=== PATIENT | female | born 1985 | race Caucasian/White ===

== ENCOUNTER 2016-05-25 05:25 | Day surgery (SDC) | payer OTHER ==
[2016-05-24 12:10] VITALS: BMI 35.1
[~2016-05-25] VITALS: Ht 157.5 cm; Wt 86.0 kg
[2016-05-25] VITALS (23 sets, daily range): BP systolic 96–127; BP diastolic 53–95; PULSE 68–110; RESP 12–20; Ht 157.5 cm; Wt 86.0 kg
[2016-05-25] MEDS ORDERED: VANCOMYCIN 1 GM (PMX) 250 ML IVPB ONE (05:30)
[2016-05-25] MEDS ORDERED: GLYCOPYRROLATE 1 MG INJ ONE (06:33)
[2016-05-25] MEDS ORDERED: NEOSTIGMINE 3 MG/3 ML SYRINGE ONE (06:33)
[2016-05-25] MEDS ORDERED: LIDOCAINE 2% (SDV) 5 ML INJ ONE (06:33)
[2016-05-25] MEDS ORDERED: MIDAZOLAM 1 MG/ML 2 ML INJ ONE (06:33)
[2016-05-25] MEDS ORDERED: PROPOFOL 20 ML ONE (06:33)
[2016-05-25] MEDS ORDERED: ROCURONIUM 50 MG INJ ONE (06:33)
[2016-05-25] MEDS ORDERED: FENTAnyl 50 MCG/ML VIAL ONE ×2 (06:33→06:59)
[2016-05-25] MEDS ORDERED: DEXAMETHASONE 4 MG/ML 1 ML INJ ONE (06:35)
[2016-05-25] MEDS ORDERED: ONDANSETRON 4 MG INJ ONE (06:36)
[2016-05-25] MEDS ORDERED: BUPIVACAINE 0.25% (MPF) 30 ML INJ ONE (06:58)
[2016-05-25] MEDS ORDERED: FENTAnyl 50 MCG/ML VIAL IV PRN ×2 (07:00)
[2016-05-25] MEDS ORDERED: EPHEDrine SULFATE 50 MG/5 ML SYG IV PRN (07:00)
[2016-05-25] MEDS ORDERED: LABETALOL HCL 20MG INJ IV PRN (07:00)
[2016-05-25] MEDS ORDERED: ATROPINE 1 MG/10 ML SYRINGE IV PRN (07:00)
[2016-05-25] MEDS ORDERED: morphine (1 MG/ML) 10ML SYRINGE IV PRN ×3 (07:00)
[2016-05-25] MEDS ORDERED: hydrALAzine 20 MG INJ IV PRN (07:00)
[2016-05-25] MEDS ORDERED: MIDAZOLAM 1 MG/ML 2 ML INJ IV PRN (07:00)
[2016-05-25] MEDS ORDERED: OXYCODONE/ACETAMINOPHEN (5/325) TAB PO PRN ×2 (07:00)
[2016-05-25] MEDS ORDERED: HYDROmorphONE (0.2 MG/ML) 10ML SYG IV PRN ×2 (07:00)
[2016-05-25] MEDS ORDERED: DIPHENHYDRAMINE 50 MG INJ IV PRN ×2 (07:00→07:30)
[2016-05-25] MEDS ORDERED: MEPERIDINE 25 MG INJ IV PRN (07:00)
[2016-05-25] MEDS ORDERED: ONDANSETRON 4 MG INJ IV PRN (07:00)
--- NOTE | 2016-05-25 07:25 | HPN ---
Date/Time of Note Date/Time of Note DATE: 05/25/16 TIME: 07:25 Interval H&P Admission Note Pt. seen H&P reviewed: No system changes ONUR WHALEY MD May 25, 2016 07:25
[2016-05-25] MEDS: D5W-0.45 NACL + KCL 20 MEQ 1,000 ML IV SCH (07:26)
[2016-05-25] MEDS ORDERED: DIPHENHYDRAMINE 25 MG CAP PO PRN (07:30)
[2016-05-25] MEDS ORDERED: NALOXONE (0.4 MG/ML) INJ IV PRN (07:30)
[2016-05-25] MEDS ORDERED: PROCHLORPERAZINE 10 MG INJ IV PRN (07:30)
[2016-05-25] MEDS ORDERED: CEPASTAT LOZENGE MT PRN (07:30)
[2016-05-25] MEDS ORDERED: ACETAMINOPHEN 325 MG TAB PO PRN (07:30)
[2016-05-25] MEDS ORDERED: HYDROmorphONE 1 MG/ML SYG IV PRN (07:30)
[2016-05-25] MEDS ORDERED: CYCLOBENZAPRINE 10 MG TAB PO PRN (07:30)
[2016-05-25] MEDS ORDERED: LABETALOL HCL 20MG INJ ONE (07:50)
[2016-05-25] MEDS ORDERED: CA CHLORIDE 10% 10 ML SYRINGE ONE (08:09)
[2016-05-25] MEDS ORDERED: THROMBIN 5000 UNIT VIAL ONE ×2 (08:10→08:29)
[2016-05-25] MEDS ORDERED: IOHEXOL 300MG/ML 30 ML BTL ONE (08:11)
[2016-05-25] MEDS ORDERED: BUPIVACAINE 0.25% (MPF) 10 ML 10 ML VIAL ONE (08:40)
[2016-05-25] MEDS ORDERED: POLYMYXIN/BACITRACIN 1L IRRIG IRR ONE (08:48)
[2016-05-25] MEDS ORDERED: HEMOSTATIC MATRIX/ THROMBIN 1 EA SYG ZFS ONE (08:54)
[2016-05-25] MEDS: HYDROmorphONE (0.2 MG/ML) 10ML SYG IV PRN ×4 (10:34→10:57)
--- NOTE | 2016-05-25 11:31 | OPR ---
DATE OF OPERATION: 05/25/2016 PREOPERATIVE DIAGNOSIS: Left L4-5 disk herniation with left lower extremity radiculopathy. POSTOPERATIVE DIAGNOSIS: Left L4-5 disk herniation with left lower extremity radiculopathy. OPERATION PERFORMED: 1. Left L4 laminectomy. 2. Left L5 laminectomy. 3. Left L4-5 facet osteotomy. 4. Removal of disk material within the disk space as well as disk fragment. 5. Evaluation of exiting L4 and traversing L5 nerve root with a [place] tool. 6. Use of intraoperative microscope for microdissection. 7. Use of intraoperative neuromonitoring for upper and lower extremities as well as spinal cord mon itoring during the entire surgical procedure for SSEP, MEP, and EMG during the entire procedure. 8. Use of intraoperative fluoroscopy for localization. 9. Use of intraoperative fluoroscopy for epidurogram. 10. Placement of epidural catheter with Isovue for epidurogram with lateral localizing film verifie d proper placement. 11. Epidural catheter injection of 4 mL of 0.25% Marcaine and 100 mcg of fentanyl removal of cathet er. 12. Cosmetic wound closure of 2 cm incision. 13. Subcutaneous injection of 0.25% Marcaine for postop analgesia. SURGEON: Lobito Lopez MD FIBERLINE SUPERVISOR: None. FINDINGS: At the start of the surgical procedure, it was noted that the patient had nerve root sign als and deficit on the left L5 down 50%, left S1 down 40% and returned back to normal symmetric to c ontralateral side at the conclusion of the procedure. BLOOD USAGE: None. IMPLANTS: NuShield barrier. ESTIMATED BLOOD LOSS: Minimal. DRAINS: None. SPECIMENS: L4-5 disk material. COMPLICATIONS: None. ANESTHESIA: Lalo Henao MD TYPE OF ANESTHESIA: General. BRIEF PREOPERATIVE HISTORY: The patient is a healthy 30-year-old female who presented with signific ant symptoms of left lower extremity radiating pain for quite some time that was attempted to be dawson ated conservatively, but patient once evaluated a new MRI demonstrated a significantly large disk he rniation seen at the L4-5 level with inferior migration of a large disk fragment. The patient was i ndicated for surgical procedure as stated above due to the significant size of the disk herniation a nd low likelihood of improvement with conservative modalities. The patient saw her medical doctor f or preoperative medical clearance and informed of all risks, benefits and alternatives and consented to surgery as stated above. OPERATION DETAIL: The patient brought to the operating room, placed under anesthesia by Dr. Henao and given 1 gram of vancomycin due to PENICILLIN ALLERGY. The patient was then turned prone onto Wi lson frame and appropriately padded. Lumbar spine prepped and draped in the usual sterile fashion. Incision line was marked over the L4-5 level and a lateral localizing film was done, verified prope r position after two spinal needles were placed for localization. An incision measuring 2 cm over t he L4-5 level was made after 0.25% Marcaine was injected subcutaneously. A subperiosteal dissection was taken out to the L4 lamina where a metal tool was placed to verify proper position on lateral l ocalizing x-ray. Once evaluation of our proper position of her incision line and laminectomy site, we started with ou r decompressive procedure with a hemilaminectomy on the left L4 laminectomy, left L5 laminectomy, le ft L4-5 facet osteotomy removing ligamentum flavum, exposing the thecal sac and performing proper he mostasis with bipolar cautery. Once this was done, the thecal sac was retracted medially by kimmie silvestre with a nerve root retractor and then a sharp incision with an 11 blade was made through the an nulus to enter into the disk space where all loose material was removed as well as disk fragments. Once this was completed, a Eve tool used to verify proper decompression and evaluate if there we re any further fragments that had inferiorly migrated which there was none. At this time, the nerve root signals improved back to normal and symmetric to the contralateral side that was compared to t he baseline at start of the procedure. Once concluded with our decompression diskectomy the disk space was irrigated thoroughly with disk s pace irrigation and then hemostasis again was achieved. An epidural catheter was inserted into the epidural space superiorly and injected with Isovue for a lateral localizing film verified proper placement in the epidural space and then once this was verif ied, we injected with 4 mL of 0.25% Marcaine and 100 mcg of fentanyl and removed the catheter. We a gain irrigated out the open laminotomy site with copious irrigation, we verified proper hemostasis. We then placed a NuShield barrier on the thecal sac as well as platelet rich plasma placed into the open laminotomy site for postop hemostasis. Removed retractor and also verified again that the hernández of the retracted tissue also had good hemos tasis. Once this was completed, we started with our closing procedure with #1 Vicryl for the fascia , #2-0 Vicryl for the subcutaneous skin and running 4-0 Monocryl covered with Dermabond, injected wi th Marcaine for postop analgesia and then covered with clean and dry dressing. Once concluded with the procedure, the patient was taken to the recovery room [facility]. All instrument, sponge counts and needles were correct at the conclusion of the procedure. The patient will be sent to the same day surgery to evaluate for postop ability to be discharged home t kyle with a dose of vancomycin prior to discharge with a prescription of [place] and Flexeril for her discharge medication. Patient will follow up in the office in approximately 7 to 10 days. She has been given detailed instructions on activities at home as well as wound care. Dictated By: LOBITO PARADA/NILS Conf#: [id number] DID#: [id number]
[2016-05-25] MEDS ORDERED: VANCOMYCIN 1 GM (PMX) 250 ML IVPB SCH (12:00)
[2016-05-25] MEDS: ONDANSETRON 4 MG INJ IV PRN ×2 (14:18→19:59)
[2016-05-25] MEDS ORDERED: HYDROCODONE/APAP (5/325) TAB PO PRN ×2 (16:30)
--- NOTE | 2016-05-25 17:03 | RADRPT ---
PROCEDURE: Intraoperative imaging of the lumbar spine with fluoroscopy. CLINICAL INDICATION: Back pain. Intraoperative. TECHNIQUE: 2 images of the lumbar spine were obtained in the operating room with an image intensif ier. No radiologist was in attendance. 6.0 seconds of fluoroscopy time was used. COMPARISON: No prior study is available for comparison. FINDINGS: For the purposes of this report, the last apparent true disc level is considered to be L5-S1. Based on this, posterior needle markers are initially at the upper L4 level and mid L5 level. The second image demonstrates a posterior surgical instrument at the L4-5 level. IMPRESSION: 1. Intraoperative imaging of the lumbar spine. RPTAT: QQ .Chato Pena MD, Date Time Electronically viewed and signed by .Chato Pena MD, on 05/25/2016 17:02 .R/
[2016-05-26] MEDS: D5W-0.45 NACL + KCL 20 MEQ 1,000 ML IV SCH (02:20)
--- NOTE | 2016-05-26 07:35 | PDOCDIS ---
Discharge Instructions DIAGNOSIS Discharge Diagnosis: left L4-4 disctectomy CONDITION Patient Condition: Good HOME CARE INSTRUCTIONS: Diet Instructions: Regular ACTIVITY: Activity Restrictions: Avoid heavy lifting Bathing Restrictions: ShowerActivity Restrictions Comment: may shower over dressing FOLLOW UP/APPOINTMENTS Appointments has appt already ONUR WHALEY MD May 26, 2016 07:35
[2016-05-26 08:11] VITALS: BP 98/57; RESP 18
[2016-05-26 11:19] VITALS: BP 115/77; PULSE 96; RESP 22
== END 2016-05-26 11:05 | disposition home or self-care (01) ==
LOC: SDS 05:25 → MS1 15:50
PROVIDERS: ADMIT Orthopaedic Surgery Orthopaedic Surgery of the Spine; ATTEND Orthopaedic Surgery Orthopaedic Surgery of the Spine
DX: M51.16 Intervertebral disc disorders with radiculopathy, lumbar region (principal)
CPT/HCPCS: 63047; 72100; 84703; 86850; 86900; 86901; 86999; 88304; 96374; 96376; 97164; J1100; J1170; J2175; J2250; J2405; J2710; J3010; J3370; J3480; Q9967; V2790; Z7500; Z7512; Z7610; G0378